=== PATIENT | female | born 1980 | race Caucasian/White ===

== ENCOUNTER 2016-06-06 20:15 | Inpatient (IN) | payer BC, OTHER ==
[2016-06-06] VITALS: BP 128/86; PULSE 86; RESP 18; TEMP 98.2; O2SAT 99
[~2016-06-06] VITALS: Ht 160 cm; Wt 89.6 kg
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
[2016-06-06] MEDS ORDERED: LORazepam 1 MG TAB PO ONE (20:45)
[2016-06-06 21:03] VITALS: BP 132/76; PULSE 99; RESP 16; TEMP 98.2; O2SAT 100
[2016-06-06 21:10] LABS: BASOPHIL # 0.1 TH/MM3 (0-0.2); BASOPHIL % 0.7 % (0.0-2.0); EOSINOPHIL # 0.1 TH/MM3 (0-0.4); EOSINOPHIL % 0.7 % (0.0-4.0); HEMATOCRIT 43.5 % (35.0-46.0); HEMO FLAGS DIFF FINAL; LYMPHOCYTE # 3.5 TH/MM3 (1.0-4.8); MEAN CELL VOLUME 86.5 FL (80.0-100.0); MEAN CORPUSCULAR HEMOGLOBIN 29.4 PG (27.0-34.0); MONO % 6.6 % (0.0-8.0); PLATELET COUNT 308 TH/MM3 (150-450); RED BLOOD COUNT 5.02 MIL/MM3 (4.00-5.30); RED CELL DISTRIBUTION WIDTH 14.1 % (11.6-17.2); WHITE BLOOD COUNT 10.3 TH/MM3 (4.0-11.0)
[2016-06-06 22:04] LABS: ALT (GPT) 30 U/L (10-53); ANION GAP 5 MEQ/L (5-15); AST (GOT) 16 U/L (15-37); BICARBONATE 29.4 MEQ/L (21.0-32.0); BLOOD UREA NITROGEN 7 MG/DL (7-18); CHLORIDE 104 MEQ/L (98-107); GLOMERULAR FILTRATION RATE 81 ML/MIN (>89); POTASSIUM 4.2 MEQ/L (3.5-5.1); SODIUM (NA) 138 MEQ/L (136-145)
[2016-06-06 22:05] LABS: ALKALINE PHOSPHATASE 92 U/L (45-117); TOTAL BILIRUBIN ADULT 0.2 MG/DL (0.2-1.0)
[2016-06-06 22:24] LABS: AMPHETAMINE, URINE POS (NEG); BARBITURATES, URINE NEG (NEG); COCAINE, URINE NEG (NEG)
[2016-06-06] MEDS ORDERED: LORazepam 0.5 MG TAB PO PRN (23:00)
[2016-06-06] MEDS ORDERED: diphenhydrAMINE HCL 50 MG/ML VIAL - HS PRN IM (23:15)
[2016-06-06] MEDS ORDERED: ALUMINUM/MAGNESIUM/SIMETH 30 ML CUP PO PRN (23:15)
[2016-06-06] MEDS ORDERED: MAGNESIUM HYDROXIDE SUSP 30 ML CUP PO PRN (23:15)
[2016-06-06] MEDS ORDERED: LORazepam 2 MG/ML VIAL IM PRN (23:15)
[2016-06-06] MEDS ORDERED: ACETAMINOPHEN 325 MG TAB PO PRN (23:15)
[2016-06-06] MEDS ORDERED: diphenhydrAMINE HCL 50 MG CAP - HS PRN PO (23:15)
[2016-06-07 05:23] VITALS: BP 105/59; PULSE 81; RESP 16; TEMP 98.2; O2SAT 98
[2016-06-07] MEDS: CITALOPRAM HYDROBROMIDE 20 MG TAB PO SCH (08:23)
[2016-06-07] MEDS: NICOTINE 21 MG/24 HR PATCH T-DERMAL SCH (08:23)
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
[2016-06-07] MEDS ORDERED: CITALOPRAM HYDROBROMIDE 20 MG TAB PO SCH (09:00)
[2016-06-07 10:14] LABS: ANION GAP 7 MEQ/L (5-15); BLOOD UREA NITROGEN 8 MG/DL (7-18); CHLORIDE 106 MEQ/L (98-107); GLOMERULAR FILTRATION RATE 86 ML/MIN (>89); POTASSIUM 3.8 MEQ/L (3.5-5.1); SODIUM (NA) 139 MEQ/L (136-145)
[2016-06-07 10:15] LABS: LDL CHOLESTEROL 78 MG/DL (0-99)
[2016-06-07 18:50] VITALS: BP 122/66; PULSE 88; RESP 18; TEMP 97.8; O2SAT 100
[2016-06-07] MEDS: REMOVE OLD NICOTINE PATCH T-DERMAL SCH (21:00)
[2016-06-07] MEDS ORDERED: QUEtiapine FUMARATE 100 MG TAB PO SCH (21:00)
[2016-06-08 06:09] VITALS: BP 94/54; PULSE 74; RESP 17; TEMP 97.4; O2SAT 99
[2016-06-08] MEDS: CITALOPRAM HYDROBROMIDE 20 MG TAB PO SCH (08:33)
[2016-06-08] MEDS: NICOTINE 21 MG/24 HR PATCH T-DERMAL SCH (08:34)
[2016-06-08 09:49] LABS: HEMOGLOBIN A1a 0.9 %; HEMOGLOBIN A1b 1.5 %; HEMOGLOBIN Ao 86.3 %; HEMOGLOBIN LA1C 1.8 %; HEMOGLOBIN P3 3.5 %
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
[2016-06-08 18:25] VITALS: BP 110/60; PULSE 92; RESP 17; TEMP 97.6; O2SAT 96
[2016-06-08] MEDS: REMOVE OLD NICOTINE PATCH T-DERMAL SCH (21:00)
[2016-06-09 05:16] VITALS: BP 102/62; PULSE 69; RESP 16; TEMP 97.8
[2016-06-09] MEDS: CITALOPRAM HYDROBROMIDE 20 MG TAB PO SCH (08:36)
[2016-06-09] MEDS: NICOTINE 21 MG/24 HR PATCH T-DERMAL SCH (09:00)
--- NOTE | 2016-06-09 10:52 | HHI.DS ---
Psychiatry Discharge Summary Inpatient Psychiatric care?: Yes Advance Directive: No Reason Not Provided: refuses packet Mental Health AdvanceDirective: No Health Care Proxy: No Admission Admission Date Jun 06, 2016 at 22:59 Admission Diagnosis: (1) Major depression, recurrent, chronic ICD Code: F33.9 GAF Score: 45 Brief History This is a 35-year-old white female who was brought under Kemp act because she was threatening to harm herself in her family members. Patient claimed that for the last 6-8 months she and her are not getting along and they are and finally has decided to go through the divorce and he moved to [place] with her 2 kids ages 7 and 2. Patient claimed that the children are her life and she cannot live without them and was threatening or making statement that she will either kill herself and her mother. At that point her sister called the police and patient was Kemp acted. Patient claimed that she did not mean to she was not feeling suicidal but she was hurt. In the past she has gone through depression. She claimed that she had a nervous breakdown out of anger she made the statement she feels okay now but hard and depressed. She also admitted to doing speed yesterday just to cope with the her. Patient denies any auditory or visual hallucinations or any paranoia or any other symptoms at this time patient does not wish to lose her job and would like to go back. Patient denies any suicidal ideation intentions or plan willing to sign voluntary and cooperate with the treatment Tobacco Use In Past 30 Days: 5 or More Cigarettes/Day Alcohol Use: 2-4 Times Per Month Hospital Course Patient was started was supportive treatment. Her medication was adjusted. She started to feel better. She claimed that by staying in the hospital she cannot do certain things that she has to do to get her children back. A shouldn 't denied any suicidal ideation intentions of plan claimed that she was hurt and reacted but now she is feeling better and willing to work as an outpatient. Denied any auditory or visual hallucinations. No behavior or management problem reported. She wants to go home at that point arrangements were made for her to be discharged Results Blood Pressure 102 / 62 Vital Signs Date Time Temp Pulse Resp B/P Pulse Ox O2 Delivery O2 Flow Rate FiO2 06/09/16 05:16 97.8 69 16 102/62 06/08/16 18:25 96 Laboratory Tests Test 06/06/16 06/06/16 06/07/16 21:00 21:15 08:40 Estimat Glomerular Filtration 81 ML/MIN (>89) 86 ML/MIN (>89) Rate Total Protein 8.5 GM/DL (6.4-8.2) Urine Amphetamines Screen POS (NEG) Calcium Level 8.2 MG/DL (8.5-10.1) Triglycerides Level 181 MG/DL (42-150) HDL Cholesterol 35.0 MG/DL (40.0-60.0) Laboratory Results Test 06/07/16 08:40 Hemoglobin A1c 5.3 % (4.3-6.0) Triglycerides Level 181 MG/DL (42-150) Cholesterol Level 149 MG/DL (120-200) LDL Cholesterol 78 MG/DL (0-99) HDL Cholesterol 35.0 MG/DL (40.0-60.0) Summary of Major Lab Results Nothing significant Summary of Procedures None Imaging None Pending results at discharge: No Medications # of Antipsychotic meds at D/C: 0 Approp Antipsych med options 1 - Minimum of three failed multiple trials of monotherapy. 2 - Documented plan to taper to monotherapy due to previous use of multiple meds OR cross-taper in progress at D/C. 3 - Documentation of augmentation of Clozapine. 4 - Justification other than those listed in allowable values 1-3, document here : Discharge Discharge Date: Jun 09, 2016 Discharge Diagnosis: (1) Major depression, recurrent, chronic Diagnosis: Principal ICD Code: F33.9 Mental Status Exam at Disch Patient was alert oriented 3 cooperative casually dressed. Her thoughts were organized. She denied any suicidal ideation intentions or plan. Denied any auditory or visual hallucinations. No behavior or management problem reported. Willing to take the medication and follow-up as an outpatient Pt Condition on Discharge: Stable Discharge Disposition: Discharge Home Discharge Instructions Diet Instructions: As Tolerated, No Restrictions Activities you can perform: Regular-No Restrictions Scheduled Appointment: Thuan Quispe Discharge Time <= 30 minutes Discharge/Advance Care Plan Health Problems: (1) Adjustment reaction (2) major depression chronic recurrent Goals to promote your health * To prevent worsening of your condition and complications * To maintain your health at the optimal level Directions to meet your goals Take your medications as prescribed Follow your dietary instruction Follow activity as directed Keep your appointments as scheduled Take your immunizations and boosters as scheduled If your symptoms worsen call your PCP, if no PCP go to Urgent Care Center or Emergency Room For 24/11 questions related to your inpatient stay or results of tests pending at discharge, please contact Dr. Julien España at Smoking is Dangerous to Your Health. Avoid second hand smoking Julien España MD Jun 09, 2016 10:52
[2016-06-09] MEDS ORDERED: CELE20TA PO (11:09)
== END 2016-06-09 15:45 | disposition home or self-care (01) | DRG 885 ==
LOC: NEPJ 20:15 → NEDA 22:59 → H260 23:55
PROVIDERS: ADMIT Psychiatry & Neurology Psychiatry; ATTEND Psychiatry & Neurology Psychiatry
DX: F33.9 Major depressive disorder, recurrent, unspecified (principal); F17.200 Nicotine dependence, unspecified, uncomplicated; F43.25 Adjustment disorder with mixed disturbance of emotions and conduct; Z86.14 Personal history of Methicillin resistant Staphylococcus aureus infection; Z62.810 Personal history of physical and sexual abuse in childhood
CPT/HCPCS: 80048; 80053; 80061; 80307; 80320; 83036; 85025; 99285

== ENCOUNTER 2017-03-24 18:16 | Emergency (ER) | payer BC, OTHER ==
[~2017-03-24] VITALS: Ht 160 cm; Wt 77.4 kg
[~2017-03-24 18:16] MED LIST: CELE20TA PO
[2017-03-24 18:20] VITALS: BP 116/68; PULSE 90; RESP 16; TEMP 98.2; O2SAT 99
[2017-03-24] MEDS ORDERED: CHLO.12%30 SWISH-SPIT (19:00)
[2017-03-24] MEDS ORDERED: AUGM875T3 PO (19:00)
--- NOTE | 2017-03-24 19:01 | PD ---
HPI . Oral infection Chief Complaint: Oral / Dental Pain or Problem Time Seen by Provider: 18:53 Travel History International Travel<30 days: No Contact w/Intl Traveler<30days: No Traveled to known affect area: No History of Present Illness HPI 36-year-old female presents emergency department for evaluation of oral infection of the left-side of mouth. She denies any fever, chills, malaise, chest pain, shortness breath. Patient states she noticed the pain and swelling proximal in 2 days ago. PFSH Past Medical History Bipolar Disorder: Yes Anxiety: No Depression: Yes Cancer: No Cardiovascular Problems: No Chest Pain: No Diabetes: No Diminished Hearing: No Endocrine: No Genitourinary: No Headaches: No Immune Disorder: No Musculoskeletal: No Neurologic: No Psychiatric: No Reproductive: No Respiratory: No Integumentary: Yes (MRSA INFECTION 1 YEAR AGO) Seizures: No Influenza Vaccination: No ?: Not LMP: 2 weeks ago : 2 Para: 1 : 1 Tubal Ligation: Yes Past Surgical History Cardiac Surgery: No Section: Yes Cholecystectomy: Yes Ear Surgery: No Eye Surgery: No Gynecologic Surgery: Yes (Two c-sections, tubal ligation.) Pacemaker: No Tonsillectomy: Yes Other Surgery: Yes Social History Alcohol Use: Yes (OCC) Tobacco Use: Yes (1/2 PACK) Substance Use: Yes (Meth) Allergies-Medications (Allergen,Severity, Reaction): Coded Allergies: vancomycin (Unverified Allergy, Severe, RASH/ THROAT CLOSES, 03/24/17) codeine (Unverified Adverse Reaction, Intermediate, NAUSEA, 03/24/17) hydrocodone (Unverified Adverse Reaction, Intermediate, NAUSEA, 03/24/17) penicillin G (Unverified Adverse Reaction, Intermediate, NAUSEA, 03/24/17) Reported Meds & Prescriptions Reported Meds & Active Scripts Active Chlorhexidine Gluconate (Mouth) Liq (Chlorhexidine Gluconate) 0.12% Soln 15 Ml SWISH-SPIT BID Augmentin (Amoxicillin-Clavulanate) 875-125 Mg Tab 1 Tab PO BID 7 Days Review of Systems Except as stated in HPI: all other systems reviewed are Neg Physical Exam Narrative GENERAL: Well-nourished, well-developed 36-year-old female patient in no acute distress. Nontoxic appearing. SKIN: Focused skin assessment warm/dry. HEAD: Normocephalic. Atraumatic. EYES: No scleral icterus. No injection or drainage. MOUTH: Left lower mucous membranes are erythematous and edematous with small purulent drainage. Multiple teeth throughout mouth with obvious decay. NECK: Supple, trachea midline. No JVD or lymphadenopathy. CARDIOVASCULAR: Regular rate and rhythm without murmurs, gallops, or rubs. RESPIRATORY: Breath sounds equal bilaterally. No accessory muscle use. GASTROINTESTINAL: Abdomen soft, non-tender, nondistended. MUSCULOSKELETAL: No cyanosis, or edema. Data Data Last Documented VS Vital Signs Date Time Temp Pulse Resp B/P (MAP) Pulse Ox O2 Delivery O2 Flow Rate FiO2 03/24/17 18:20 98.2 90 16 116/68 (84) 99 Orders Orders Ed Discharge Order (03/24/17 19:01) [facility] Medical Decision Making Medical Screen Exam Complete: Yes Emergency Medical Condition: Yes Differential Diagnosis Differential diagnoses include but not limited to abscess, oral infection, dentalgia Narrative Course 36-year-old female presents emergency department for evaluation of dentalgia and mild infection. Left lower mucous membranes are erythematous and edematous with small amount of purulent drainage noted. Patient is discharged home with prescription for Augmentin and chlorhexidine mouthwash and instructions to return the emergency Department with any worsening condition but otherwise follow up with primary care or dentist. Diagnosis Primary Impression: Infection of mouth Referrals: Dentist Patient Instructions: Dental Abscess (ED), General Instructions Additional Instructions: Please return to emergency department if your symptoms return or worsen. Follow up with a dentist. Take medications as prescribed. Warm moist compresses to the face will help facilitate draining. Take ibuprofen or Tylenol as a for pain or fevers. Med/Other Pt SpecificInfo: Prescription(s) given Scripts Chlorhexidine Gluconate (Mouth) Liq (Chlorhexidine Gluconate (Mouth) Liq) 0.12% Soln 15 ML SWISH-SPIT BID, #473 ML 0 Refills Prov: Deanne Yin 03/24/17 Amoxicillin-Clavulanate (Augmentin) 875-125 Mg Tab 1 TAB PO BID for Infection for 7 Days, #14 TAB 0 Refills Prov: Deanne Yin 03/24/17 Disposition: 01 DISCHARGE HOME Condition: Stable Deanne Yin Mar 24, 2017 19:01
== END 2017-03-24 19:10 | disposition home or self-care (01) ==
LOC: PHEFT 18:16
DX: K04.7 Periapical abscess without sinus (principal); F17.200 Nicotine dependence, unspecified, uncomplicated
CPT/HCPCS: 99283